=== PATIENT | female | born 1970 | race Caucasian/White ===

== ENCOUNTER 2023-12-06 16:32 | Emergency (ER) | payer OTHER, SELFPAY ==
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
[2023-12-06 16:41] VITALS: BP 121/79; PULSE 78; RESP 22; TEMP 36.9; O2SAT 95
[2023-12-06 16:54] VITALS: BP 121/79; BP 133/88; PULSE 78; PULSE 83; RESP 22; TEMP 36.9; O2SAT 95; O2SAT 98; BMI 36.3
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
[2023-12-06] MEDS: Ibuprofen 600 MG TABLET PO (17:05)
[2023-12-06] MEDS: Cyclobenzaprine HCl 10 MG TABLET PO (17:05)
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
[2023-12-06] MEDS: Acetaminophen 325 MG TABLET 650 MG PO (19:50)
--- NOTE | 2023-12-06 21:07 | MHC.EDTECH ---
Patient yelled I dont want my fucking vitals I just want my paperwork and to leave
[2023-12-06 21:10] VITALS: BP 121/79; PULSE 78; RESP 22; TEMP 36.9; O2SAT 95
== END 2023-12-06 21:10 | disposition home or self-care (01) ==
PROVIDERS: Emergency Provider Emergency Medicine
DX: T14.90XA Injury, unspecified, initial encounter (principal); V43.52XA Car driver injured in collision with other type car in traffic accident, initial encounter; Y93.9 Activity, unspecified; Y92.410 Unspecified street and highway as the place of occurrence of the external cause; Y99.9 Unspecified external cause status; R51.9 Headache, unspecified; M54.2 Cervicalgia; M54.50 Low back pain, unspecified
CPT/HCPCS: 70450; 72125; 99284